=== PATIENT | male | born 1995 | race Caucasian/White ===

== ENCOUNTER 2017-09-16 11:01 | Emergency (ER) | payer BC ==
[~2017-09-16] VITALS: Ht 188 cm; Wt 77.1 kg
[2017-09-16 11:01] VITALS: BP 150/78
== END 2017-09-16 12:12 | disposition home or self-care (01) ==
LOC: ER 11:02
DX: S43.402A Unspecified sprain of left shoulder joint, initial encounter (principal); X58.XXXA Exposure to other specified factors, initial encounter; Y93.89 Activity, other specified; Y92.89 Other specified places as the place of occurrence of the external cause; Y99.8 Other external cause status
CPT/HCPCS: 73030; 99284; A4606; Z7610